=== PATIENT | female | born 1965 | race Caucasian/White ===

== ENCOUNTER → 2018-12-27 05:59 | Day surgery (SDC) | payer SELFPAY ==
[~2018-12-27 05:59] MED LIST: Artificial Tear OPHTH.OINT* 3.5 GM ONE; BSS OPTH.SOL* BTL ONE; Bacitracin OINTMENT* 0.5% 0.5 oz TUBE ONE; Bacitracin OPHTH.OINT* 3.5 GM ONE; Buffered Lidocaine 1% SYRIN* 1 ML/SYRINGE INTRADERM ONE; Carboxymethylcellulose/Glyceri 10 ML OPHTH.GEL lubricant eye gel ONE; Dexamethasone IV* 4 MG/ML 1 ML (4 MG) ONE; Lactated Ringers 1000 ML Bag* 1,000 ML IV SCH; Lidocain 1% EPI 1:100,000 * 30 ML MDV ONE; Midazolam* 1 MG/ML 5 ML VIAL (5 MG) ONE; Naloxone* 0.4 MG/ML 1 ML VIAL IV PRN; Ondansetron INJ* 2 MG/ML VIAL ONE; Propofol* 10 MG/ML 20 ML BTL ONE; Tetracaine 0.5% OPTH.SOL 4 ML* 1 DROP BTL ONE; ceFAZolin 2 GM in NS PREMIX(*) 2 GM/100 ML BAG IVPB ONE; fentaNYL* 50 MCG/ML 2 ML VIAL (100 MCG VIAL) ONE
[2018-12-27 10:32] VITALS: BP 128/91
== END | disposition home or self-care (01) ==
LOC: OR 05:59
PROVIDERS: ATTEND Plastic Surgery
DX: Z41.1 Encounter for cosmetic surgery (principal)
CPT/HCPCS: 88300; A9270-GY; J0690; J1100; J2250; J2405; J2704; J3010